=== PATIENT | female | born 1985 | race Caucasian/White ===

== ENCOUNTER 2025-03-05 10:40 | Emergency (ER) | payer OTHER, SELFPAY ==
--- NOTE | ~2025-03-05 | XR_ITS ---
EXAMINATION: XR CHEST CLINICAL INFORMATION: cough, sob COMPARISON: None available. TECHNIQUE: 2 views of the chest were obtained. FINDINGS: Lungs: No focal consolidation or evidence of pulmonary edema. Pleura: No pleural effusion or pneumothorax. Heart/Mediastinum: Cardiomediastinal silhouette is within normal limits. Bones: No acute findings. XR/XR chest 2V IMPRESSION: No acute cardiopulmonary process. Electronically signed by: Reinier Joel MD 03/05/2025 10:54 AM [facility] [place]
[2025-03-05 10:42] VITALS: BP 109/72; PULSE 90; RESP 18; TEMP 36.2; O2SAT 95
--- NOTE | 2025-03-05 10:42 | ED_ITS ---
HPI - URI/Sore Throat General Chief Complaint: Asthma Stated Complaint: Cough Congestion Running Nose Time Seen by Provider: 03/05/25 11:01 Source: patient, RN notes reviewed and old records reviewed Mode of arrival: ambulatory Limitations: no limitations History of Present Illness ED Provider: ELISABETH Oro HPI Narrative: 39-year-old female with medical history of asthma presents to ED due to 2 days of productive cough with wheezing, nasal congestion, sore throat with mild SOB when coughing. Patient ran out of her albuterol inhaler 1 week ago. Denies sick contacts, patient former smoker. Denies fever, chills, chest pain, difficulty breathing, abdominal pain, nausea, vomiting, headaches, visual changes, urinary symptoms Related Data Previous Rx's ?Medication ?Instructions ?Recorded albuterol sulfate 1.25 mg/3 mL 1.25 mg (3 mL) inhalati on Q4-6H 03/05/25 solution for nebulization PRN shortness of breath or wheezing #90 mL albuterol sulfate 90 mcg/actuation 2 puff inhalation Q 4-6H PRN 03/05/25 aerosol inhaler (Ventolin HFA) shortness of breath or wheezing #6.7 grams nebulizers #1 ea 03/05/25 prednisone 20 mg tablet 20 mg PO BID #8 tabs 5 Allergies Allergy/AdvReac Type Severity Reaction Status Date / Time No Known Allergies (No Known Allergy Unverified 03/05/25 10:44 Allergies*) Review of Systems Review of Systems: Yes all other systems are reviewed and are negative PMFSH Past Medical History Attestation statement: The following information was validated with the patient. Source: old records reviewed and nursing notes reviewed Social History Social History Advance Directives: No Advance Directives Information Provided: Yes Do you have a plan to hurt others: No Plan Physical Exam Vital Signs: Vital Signs: Last Vital Signs Temp 97.9 F 03/05/25 12:31 Pulse 77 03/05/25 12:31 Resp 16 03/05/25 12:31 BP 118/61 03/05/25 12:31 Pulse Ox 97 03/05/25 12:31 O2 Del Method Room Air 03/05/25 12:31 BMI result Body Mass Index 30.0 GENERAL APPEARANCE: ?AxOx4, generally well-appearing, no acute distress. HEENT: ?NC, AT. MMM. EOMI, clear conjunctiva, posterior oropharynx with mild erythema without edema, uvula midline, no uvular edema, no tonsilar edema, no tonsilar exudates, tolerating oral secretions, speaking in full clear sentences NECK: ?Supple without lymphadenopathy.? No stiffness or restricted ROM. HEART:? Normal rate and regular rhythm, normal S1/S2, no m/r/g LUNGS: Lungs without ronchi but with significant expiratory wheeze, no increased work of breathing, no accessory muscle use, no pursed lip breathing ABDOMEN: ?Soft, nontender, nondistended with good bowel sounds heard. BACK: No CVAT, no obvious deformity. EXTREMITIES: ?Without cyanosis, clubbing or edema. NEUROLOGICAL: ?Grossly nonfocal. Alert and oriented, moving all 4 extremities. Observed to ambulate with normal gait. Skin: ?Warm and dry without any rash. Course Course Course Narrative: This is a Rapid Medical Exam performed in triage by Nimco Brown PA-C. Full HPI, ROS and PE to be performed by primary ED provider. 39 yo F w/pmhx asthma presenting to the ED c/o cough, congestion, SOB, wheezing x few days. States she is out of her inhaler. denies CP PE: +diffuse exp wheeze, talking in complete sentences Plan: SARs, CXR, ED bronch protocol Medications Administered Discontinued Medications Generic Name Dose Route Start Last Admin Trade Name Freq PRN Reason Stop Dose Admin Albuterol Sulfate 4 puff 03/05/25 11:01 03/05/25 11:05 Albuterol Sulfate 90 Mcg 8 Gm Inhaler INHALE 03/05/25 11:02 4 puff ONCE ONE Administration Albuterol/Ipratropium 3 ml 03/05/25 12:02 03/05/25 12:06 Albuterol/Iprat 2.5/0.5mg 3 Ml Ampul.Neb INHALE 03/05/25 12:03 3 ml ONCE ONE Administration Magnesium Sulfate 2 gm in 50 mls @ 150 mls/hr 03/05/25 12:04 03/05/25 12:22 Magnesium Sulfate/H2o IV 03/05/25 12:23 150 mls/hr ONCE ONE Administration Methylprednisolone Sodium Succinate 60 mg 03/05/25 12:04 03/05/25 12:22 Methylprednisolone Sod Succ 125 Mg/2 Ml Vial IVPUSH 03/05/25 12:05 60 mg ONCE ONE Administration Medical Decision Making Medical Decision Making [facility] Narrative: 39-year-old female with medical history of asthma presents to ED due to 2 days of productive cough with wheezing, nasal congestion, sore throat with mild SOB when coughing. Patient ran out of her albuterol inhaler 1 week ago. Denies sick contacts, patient former smoker. VS on initial observation-BP 109/72, pulse rate of 90, respiratory rate of 18, afebrile with oral temp of 97.1?, O2 saturation 95% on room air. On physical exam patient is very well-appearing, nontoxic, in no acute distress, lungs without rhonchi however significant expiratory wheeze, no increased work of breathing, no accessory muscle use, no pursed lip breathing. Posterior oropharynx with mild erythema, uvula midline without uvular edema, no tonsilar edema, no tonsilar exudates, tolerating oral secretions, speaking in full clear sentences. CXR without infiltrates, consolidations, or pulmonary edema Patient with 2 days of productive cough, nasal congestion, sore throat symptoms most consistent with viral illness. Afebrile while in the department, without hypoxia, tachypnea. Patient medicated in the department with 60 mg IV Solu- Medrol, 2 mg IV magnesium, 4 puffs albuterol, 3 mL DuoNeb with significant improvement of her symptoms. Patient being discharged with 4 days of 40 mg prednisone as patient received dose of steroids today in the department, albuterol inhaler, and I attempted to send in DuoNeb machine with mask and solution for lemon picker. Patient does not have follow up with PCP, I will provide referrals and counseled patient on strict return precautions. Patient feels well enough to go home for self care. Patient is in agreement with the plan. Differential Diagnosis Differential Diagnoses: The differential diagnosis associated with the presentation includes COVID Flu RSV Viral illness Asthma exacerbation Admission/Observation Consideration of admission/observation: Escalation of care including admission/observation considered Lab Data [facility] Lab Attestation statement: I reviewed the patient's lab results. Labs: Lab Results 03/05/25 03/05/25 Range/Units 11:19 12:14 Magnesium 2.2 (1.6-2.6) mg/dL Influenza Type A (PCR) NEGATIVE (Negative) Influenza Type B (PCR) NEGATIVE (Negative) RSV RNA Qual (PCR) NEGATIVE (Negative) SARS-CoV-2 RNA (RT-PCR) NEGATIVE (Negative) Independent Interpretation I performed an independent interpretation of an: Plain X-Ray Interpretation: I personally interpreted the CXR which was negative for infiltrates, consolidations, pleural effusion, pulmonary edema, pneumothorax, I agree with the radiologist's interpretation Radiology Impression Discussion of test interpretation with radiology: I have reviewed the radiologist's reading. Radiologist Impression: CXR FINDINGS: Lungs: No focal consolidation or evidence of pulmonary edema. Pleura: No pleural effusion or pneumothorax. Heart/Mediastinum: Cardiomediastinal silhouette is within normal limits. Bones: No acute findings. XR/XR chest 2V IMPRESSION: No acute cardiopulmonary process. Electronically signed by: Reinier Joel MD 03/05/2025 10:54 [place] [facility] [place] By: Reinier Joel MD Signed By: <Electronically signed by Reinier Joel MD in [place]> 03/05/25 1054 External Record Review External record reviewed: Inpatient record, Office record and Outpatient record Prescription Management I considered prescription management with: Antibiotic I considered antibiotics however patient with 2 days of symptoms, CXR WNL, no indication for antibiotics at this time. Chronic Conditions Patient?s care impacted by: Other (Asthma) Social Determinants Patient?s care significantly limited by Social Determinants of Health including: Other Social Determinant of Health Discharge Plan Discharge Clinical Impression: Viral illness Patient Disposition: Home, Self-Care Instructions: Viral Syndrome (ED) Additional Instructions: You were evaluated in the emergency department due to 2 days of productive cough, nasal congestion and sore throat. After albuterol inhaler, and DuoNeb treatment in the department your symptoms and wheezing improved significantly. You are being discharged with a 4 day course of 20 mg prednisone that you will take twice daily, albuterol inhaler, and I attempted for DuoNeb and solution so you can have your machine at home. I have placed referrals for primary care, please call their office as they will not call you. Please return to the emergency department if you experience worsening shortness of breath, worsening cough, worsening nasal congestion, fevers over 100.4? that are not controlled by Tylenol/Motrin, chest pain, abdominal pain, or any new/worsening/concerning symptoms Prescriptions: New (DME) nebulizers Misc See Rx Instructions .Route Qty: 1 0RF Rx Instructions: As directed albuterol sulfate 1.25 mg/3 mL solution for nebulization 1.25 mg inhalation Q4-6H PRN (Reason: shortness of breath or wheezing) Qty: 90 0RF albuterol sulfate [Ventolin HFA] 90 mcg/actuation HFA aerosol inhaler 2 puff inhalation Q4-6H PRN (Reason: shortness of breath or wheezing) Qty: 6.7 0RF prednisone 20 mg tablet 20 mg PO BID Qty: 8 0RF Print Language: Ukrainian
[2025-03-05] MEDS: Albuterol Sulfate 90 MCG 8 GM INHALER 4 PUFF INHALE (11:05)
[2025-03-05 11:06] VITALS: PULSE 89; RESP 16; O2SAT 96
[2025-03-05] MEDS: Albuterol/Iprat 2.5/0.5MG 3 ML AMPUL.NEB INHALE (12:06)
[2025-03-05 12:08] VITALS: PULSE 75
[2025-03-05 12:09] LABS: Resp Syncy Virus RNA Qual PCR NEGATIVE (Negative); SARS COV2 PCR INHOUSE NEGATIVE (Negative)
[2025-03-05] MEDS: Magnesium Sulfate/H2O 2 GM/50 ML PIGGYBACK IV (12:22)
[2025-03-05 12:31] VITALS: BP 118/61; PULSE 77; RESP 16; TEMP 36.6; O2SAT 97
[2025-03-05 12:36] LABS: Magnesium 2.2 mg/dL (1.6-2.6)
[2025-03-05 12:47] VITALS: BP 118/61; PULSE 77; RESP 16; TEMP 36.6; O2SAT 97
== END 2025-03-05 12:47 | disposition home or self-care (01) ==
PROVIDERS: Physician Assistant; Emergency Provider Emergency Medicine; PCP Internal Medicine
DX: B34.9 Viral infection, unspecified (principal); R05.9 Cough, unspecified; J02.9 Acute pharyngitis, unspecified; Z03.818 Encounter for observation for suspected exposure to other biological agents ruled out; J45.909 Unspecified asthma, uncomplicated; Z79.51 Long term (current) use of inhaled steroids
CPT/HCPCS: 36415; 71046; 83735; 87637; 94640; 96365; 96375; 99284; J2919; J3475

== ENCOUNTER → 2025-03-05 10:43 | Outpatient (BNV) | payer OTHER, SELFPAY | PROVIDERS: Emergency Provider Emergency Medicine; Visit Provider Radiology Body Imaging | DX: R05.9 Cough, unspecified (principal); R06.02 Shortness of breath | CPT/HCPCS: 71046 ==